=== PATIENT | female | born 1970 ===

== ENCOUNTER 2019-05-23 14:30 | Outpatient (CLI) | payer BC ==
--- NOTE | 2019-05-24 08:21 | Mammography Report ---
BILATERAL DIGITAL DIAGNOSTIC MAMMOGRAM WITH CAD -- 05/23/2019 BILATERAL BREAST ULTRASOUND INDICATION: Right breast pain. TECHNIQUE: Digital bilateral mammographic imaging was performed. Spot compression views were obtaine d. Complete ultrasound of the right breast was performed and limited ultrasound of the left breast wa s performed. This examination was interpreted with the benefit of Computer-Aided Detection (CAD) anal ysis. COMPARISON: None. FINDINGS: Breast Density: The breasts are heterogeneously dense, which may obscure small masses. MAMMOGRAPHIC FINDINGS: There is no evidence of dominant mass, suspicious calcifications or architectu ral distortion in the right breast. A left inner asymmetry on the CC view demonstrates satisfactory e ffacement with spot compression. A partially circumscribed inferior asymmetry of the left breast pers ists on spot compression but is not seen on a lateral view. ULTRASOUND FINDINGS: Complete sonographic evaluation of all 4 quadrants and retroareolar region was p erformed. No mass, cyst or suspicious shadowing of the right breast. Ultrasound of the inferior lef t breast was performed and demonstrated a probably benign cluster of cysts at 5:00 2 cm from the nipp le measuring 1.2 x 0.4 x 0.8 cm. A benign cyst at 3:00 5 cm from the nipple measures 5 mm. No other s ignificant finding. IMPRESSION: Negative right mammogram and negative right breast ultrasound. Probably benign left mammo graphic asymmetries and probably benign clustered cysts of the left breast at 5:00 2 cm from the nipp le. Recommend 6 month follow-up left mammogram and left breast ultrasound. Recommend clinical follow-up a nd routine screening of the right breast. Follow up recommendation: Short term follow up in 6 months. BI-RADS Category 3: Probably Benign. Followup in 6 months. A "normal" or negative report should not discourage follow up or biopsy of a clinically significant f inding. A written summary of these findings will be mailed to the patient. The patient will be entered into a mammography reporting system which will generate a reminder letter for the patient's next appointmen t at the appropriate interval. According to the [employer], yearly mammograms are recommended starting at age 40 and continuing as long as a woman is in good health. Breast MRI is recommended for women with an perla roximately 20-25% or greater lifetime risk of breast cancer, including women with a strong family his tory of breast or ovarian cancer and women who have been treated for Hodgkin's disease. Signer Name: Robert Cosme MD Signed: 05/24/2019 8:17 AM Workstation Name: [id number]
== END 2019-05-23 14:31 | disposition home or self-care (01) ==
LOC: MAMMO 14:30
PROVIDERS: ATTEND Internal Medicine
DX: N64.4 Mastodynia (principal)
CPT/HCPCS: 77066